=== PATIENT | female | born 1995 | race Caucasian/White ===

== ENCOUNTER 2018-10-26 06:53 | Emergency (ER) | payer BC, MEDICAID ==
[~2018-10-26] VITALS: Ht 149.9 cm; Wt 43.4 kg
[~2018-10-26 06:53] MED LIST: CIPR500T4 PO; OMEP20CA16 PO; RANI150T35 PO
[2018-10-26 06:55] VITALS: BP 113/78; PULSE 66; RESP 19; Ht 149.9 cm; Wt 43.4 kg
--- NOTE | 2018-10-26 07:42 | ERD ---
ER Documentation Chief Complaint Chief Complaint WANTS TO REMOVE FOREIGN OBJECT @ LEFT FACIAL AREA HPI 23-year-old female presents to get a piercing removed from her left cheek. Had the piercing in for 5 years and is unable to get it removed herself. Denies pain, discharge, erythema. Denies past medical history. Denies allergies. Denies medications. Denies surgeries. Denies alcohol, tobacco, drug use. Up to date on vaccines including tetanus. ROS All systems reviewed and are negative except as per history of present illness. Medications Home Meds Active Scripts Omeprazole* (Omeprazole*) 20 Mg Capsule.dr, 20 MG PO DAILY, #30 CAP Prov:GIOVANA SHELDON PA-C 07/18/15 Ranitidine Hcl* (Zantac*) 150 Mg Tablet, 150 MG PO BID PRN for PAIN, #30 TAB Prov:GIOVANA SHELDON PA-C 07/18/15 Ciprofloxacin Hcl* (Ciprofloxacin Hcl*) 500 Mg Tablet, 500 MG PO BID for 3 Days, TAB Prov:GIOVANA SHELDON PA-C 07/18/15 Allergies Allergies: Coded Allergies: No Known Allergy (Unverified , 10/26/18) PMhx/Soc Medical and Surgical Hx: pt denies Surgical Hx Hx Neurological Disorder: No Hx Respiratory Disorders: Yes (asthma) Hx Cardiac Disorders: No Hx Psychiatric Problems: No Hx Miscellaneous Medical Probl: No Hx Alcohol Use: No Hx Substance Use: No Hx Tobacco Use: No FmHx Family History: No diabetes, No coronary disease, No other Physical Exam Vitals Vital Signs Date Temp Pulse Resp B/P (MAP) Pulse Ox O2 O2 Flow FiO2 Time Delivery Rate 10/26/18 97.5 66 19 113/78 99 06:55 (90) Physical Exam Const: No acute distress Resp: Clear to auscultation bilaterally Cardio: Regular rate and rhythm, no murmurs Skin: Small mahsa piercing noted on patient's left cheek. No edema erythema, discharge or signs of infection. Psych: Normal Mood and Affect Results 24 hrs Current Medications Medications Dose Sig/Rajinder Start Time Status Last (Trade) Ordered Route PRN Stop Time Admin Dose Reason Admin Lidocaine 20 ml ONCE ONCE 10/26/18 DC (Xylocaine SC 08:00 1% (Mdv) 20 10/26/18 08:01 ml) Procedures/MDM ER Course: Mahsa piercing removed by making small incision. Laceration Repair by me: Anesthesia: 1% lidocaine locally Location: Right upper cheek Tendon/Joint/Nerves: No injury Foreign body: None detected after copious irrigation and exploration Technique: 2 Simple Interrupted Sutures Complexity: No subcutaneous sutures/mucosal repair/edge excision Post Closure Length: 1 cm Patient's bleeding was easily controlled in the department and there is no indication of anemia. No evidence of compartment syndrome, neurologic injury, vascular injury, open joint, tendon laceration, or foreign body. Patient is appropriate for outpatient follow up. 48 hour wound check. Scar minimization instructions given. MDM:23-year-old female presents to get a piercing removed from her left cheek. Had the piercing in for 5 years and is unable to get it removed herself. Denies pain, discharge, erythema. I advised patient that that there would likely be a scar left on her face after taking the piercing out of her cheek. She consented to have the procedure done anyways. I was able to unscrew the front of the piercing and remove it but the back was embedded inside her cheek. I made a small half centimeter incision along the Monico's lines in order to fully remove the back of the piercing. I then used two sutures to sew the incision back up. Patient advised to return in 2 days for wound check and then 5 days after that for suture removal. There was no sign of infection so antibiotics are not wa rranted. Patient discharged with strict ER precautions. Patient advised to follow up with PMD. All questions answered at discharge. Departure Diagnosis: Primary Impression: Retained foreign body Condition: Stable ASH OLIVARES Oct 26, 2018 07:42
[2018-10-26] MEDS ORDERED: LIDOCAINE 1% (MDV) 20 ML INJ SC ONE (08:00)
== END 2018-10-26 09:06 | disposition left against medical advice (07) ==
LOC: FTE 06:53
DX: S00.85XA Superficial foreign body of other part of head, initial encounter (principal); J45.909 Unspecified asthma, uncomplicated; X58.XXXA Exposure to other specified factors, initial encounter; Y92.9 Unspecified place or not applicable

== ENCOUNTER 2018-11-11 05:36 | Emergency (ER) | payer BC ==
[~2018-11-11] VITALS: Ht 149.9 cm; Wt 44.2 kg
[2018-11-11 05:38] VITALS: Ht 149.9 cm; Wt 44.2 kg
--- NOTE | 2018-11-11 05:52 | ERD ---
ER Documentation Chief Complaint Chief Complaint WOUND CHECK ; STITCHES REMOVAL HPI Patient is a 23-year-old female presents the ER for suture removal. Patient underwent foreign body removal to her left cheek approximately 6 days ago. Patient is here today for suture removal. Patient denies any fevers or chills. Patient denies any redness, swelling, pain. Tetanus is up-to-date. ROS All systems reviewed and are negative except as per history of present illness. Medications Home Meds Active Scripts Omeprazole* (Omeprazole*) 20 Mg Capsule.dr, 20 MG PO DAILY, #30 CAP Prov:GIOVANA SHELDON PA-C 07/18/15 Ranitidine Hcl* (Zantac*) 150 Mg Tablet, 150 MG PO BID PRN for PAIN, #30 TAB Prov:GIOVANA SHELDON PA-C 07/18/15 Ciprofloxacin Hcl* (Ciprofloxacin Hcl*) 500 Mg Tablet, 500 MG PO BID for 3 Days, TAB Prov:GIOVANA SHELDON PA-C 07/18/15 Allergies Allergies: Coded Allergies: No Known Allergy (Unverified , 10/26/18) PMhx/Soc Hx Neurological Disorder: No Hx Respiratory Disorders: Yes (asthma) Hx Cardiac Disorders: No Hx Psychiatric Problems: No Hx Miscellaneous Medical Probl: No Hx Alcohol Use: No Hx Substance Use: No Hx Tobacco Use: No FmHx Family History: No diabetes Physical Exam Vitals Vital Signs Date Temp Pulse Resp B/P (MAP) Pulse Ox O2 O2 Flow FiO2 Time Delivery Rate 11/11/18 97.3 72 19 103/58 99 05:38 (73) Physical Exam GENERAL: Well-developed, well-nourished female. Appears in no acute distress. HEAD: Normocephalic, atraumatic. EYES: Pupils are equally reactive bilaterally. EOMs grossly intact. No conjunctival erythema. ENT: Moist mucous membranes. No uvula deviation. No kissing tonsils. Able to open and close jaw without any difficulty. NECK: Supple. No meningismus. Normal range of motion of the neck. LUNG: No respiratory distress. EXTREMITIES: Equal pulses bilaterally. No peripheral clubbing, cyanosis or edema. No unilateral leg swelling. NEUROLOGIC: Alert and oriented. Moving all four extremities without any difficulty. Normal speech. Steady gait. SKIN: Tattoos noted to left faces. 2 sutures noted in the patient's left cheek. No surrounding erythema, swelling or active bleeding or discharge. No wound dehiscence. Procedures/MDM Suture Removal by me: 2 Sutures removed with tweezers and scissors without incident. Wound shows no evidence of infection, foreign body, neurologic injury, vascular injury, open joint or tendon laceration. Patient to follow up PRN. Departure Diagnosis: Primary Impression: Visit for suture removal Condition: Stable Patient Instructions: Suture Removal, No Complication Referrals: [facility] YOU HAVE RECEIVED A MEDICAL SCREENING EXAM AND THE RESULTS INDICATE THAT YOU DO NOT HAVE A CONDITION THAT REQUIRES URGENT TREATMENT IN THE EMERGENCY DEPARTMENT. FURTHER EVALUATION AND TREATMENT OF YOUR CONDITION CAN WAIT UNTIL YOU ARE SEEN IN YOUR DOCTORS OFFICE WITHIN THE NEXT 1-2 DAYS. IT IS YOUR RESPONSIBILITY TO MAKE AN APPOINTMENT FOR FOLOW-UP CARE. IF YOU HAVE A PRIMARY DOCTOR --you should call your primary doctor and schedule an appointment IF YOU DO NOT HAVE A PRIMARY DOCTOR YOU CAN CALL OUR PHYSICIAN REFERRAL HOTLINE AT IF YOU CAN NOT AFFORD TO SEE A PHYSICIAN YOU CAN CHOSE FROM THE FOLLOWING [facility] [address] [facility] [address] [facility] [address] [facility] [address] [facility] [address] [facility]. [facility]. [address] [facility]. [facility] YOU HAVE RECEIVED A MEDICAL SCREENING EXAM AND THE RESULTS INDICATE THAT YOU DO NOT HAVE A CONDITION THAT REQUIRES URGENT TREATMENT IN THE EMERGENCY DEPARTMENT. FURTHER EVALUATION AND TREATMENT OF YOUR CONDITION CAN WAIT UNTIL YOU ARE SEEN IN YOUR DOCTORS OFFICE WITHIN THE NEXT 1-2 DAYS. IT IS YOUR RESPONSIBILITY TO MAKE AN APPOINTMENT FOR FOLOW-UP CARE. IF YOU HAVE A PRIMARY DOCTOR --you should call your primary doctor and schedule and appointment IF YOU DO NOT HAVE A PRIMARY DOCTOR YOU CAN CALL OUR PHYSICIAN REFERRAL HOTLINE AT . IF YOU CAN NOT AFFORD TO SEE A PHYSICIAN YOU CAN CHOSE FROM THE FOLLOWING [facility]: [facility] [address] [place] [address] [facility] [address] [place] [address] [facility] + [facility] [address] [place] [address] Additional Instructions: Call your primary care doctor TOMORROW for an appointment during the next 1-2 days.See the doctor sooner or return here if your condition worsens before your appointment time. PEDRO QUIROGA PA-C Nov 11, 2018 05:52
[2018-11-11 06:00] VITALS: BP 105/59; PULSE 70; RESP 16
== END 2018-11-11 06:20 | disposition home or self-care (01) ==
LOC: FTE 05:36
DX: Z48.02 Encounter for removal of sutures (principal); J45.909 Unspecified asthma, uncomplicated
CPT/HCPCS: 99281